=== PATIENT | male | born 1990 | race Caucasian/White ===

== ENCOUNTER 2024-07-12 15:45 | Emergency (ER) | payer OTHER ==
[~2024-07-12] VITALS: Ht 190.5 cm; Wt 80.9 kg
[2024-07-12 16:48] LABS: BILIRUBIN, URINE NEGATIVE (negative); BLOOD/HGB, URINE NEGATIVE (Negative); KETONE, URINE NEGATIVE (Negative); LEUK ESTERASE, URINE NEGATIVE (negative); NITRITE, URINE NEGATIVE (negative)
[2024-07-12 16:49] LABS: HEMATOCRIT 44.1 % (35.0-50.0)
[2024-07-12 16:51] LABS: BASOPHILS 0.4 % (0-2); EOSINOPHILS 0.3 % (0-6); HEMOGLOBIN 14.9 g/dL (12.0-18.0); LYMPHOCYTES 17.4 % (24-44); MCHC 33.7 g/dl (30-36); MCV 91.9 fl (81-99); MONOCYTES 6.9 % (0-12); PLATELET COUNT 226 K/uL (140-440); RDW 13.9 (10.5-15.0)
[2024-07-12 17:02] LABS: AMPHETAMINES, URINE NEGATIVE (NEGATIVE); BARBITURATES, URINE NEGATIVE (NEGATIVE); BENZODIAZEPINE, URINE NEGATIVE (NEGATIVE); BUPRENORPHINE, URINE NEGATIVE (NEGATIVE); CANNABINOID, URINE POSITIVE (NEGATIVE); COCAINE, URINE NEGATIVE (NEGATIVE); ECSTASY, URINE NEGATIVE (NEGATIVE); FENTANYL, URINE NEGATIVE (NEGATIVE); METHADONE, URINE NEGATIVE (NEGATIVE); OPIATES, URINE NEGATIVE (NEGATIVE); OXYCODONE, URINE NEGATIVE (NEGATIVE); PHENCYCLIDINE, URINE NEGATIVE (NEGATIVE)
[2024-07-12 17:11] LABS: ACETAMINOPHEN 0 ug/mL (10-30); ALBUMIN 4.4 g/dL (3.4-5.0); ALBUMIN/GLOBULIN RATIO 1.22 (1.1-2.4); ALCOHOL, MEDICAL <3 ng/dL (<3); ALKALINE PHOSPHATASE 73 U/L (46-116); ALT (SGPT) 19 U/L (14-59); ANION GAP 12.9 (7-21); AST (SGOT) 14 U/L (15-37); BILIRUBIN, TOTAL 0.5 ng/dL (0.2-1.0); BUN/CREATININE RATIO 17.52 (6.0-28.6); CALCIUM 9.4 mg/dL (8.5-10.1); CARBON DIOXIDE 27 mmol/L (21-32); CHLORIDE 101 mmol/L (98-107); CREATININE, SERUM 0.97 mg/dL (0.70-1.30); GLOMERULAR FILTRATION RATE,EST 104 mL/min (>60); POTASSIUM 3.9 mmol/L (3.5-5.1); SALICYLATE 4.1 mg/dL (2.8-20.0); TSH, 3RD GENERATION 0.766 uIU/mL (0.358-3.740); UREA NITROGEN 17 mg/dL (7-18)
[2024-07-13 12:31] VITALS: BP 103/58
== END 2024-07-13 12:31 | disposition home or self-care (01) ==
LOC: ED 15:45
PROVIDERS: Emergency Medicine
DX: F32.A Depression, unspecified (principal); F84.0 Autistic disorder
CPT/HCPCS: 36415; 80053; 80307; 81003; 84443; 85025; 99284; G0480; U0002